=== PATIENT | female | born 1985 | race Caucasian/White ===

== ENCOUNTER 2016-08-18 17:52 | Emergency (ER) | payer SELFPAY ==
[~2016-08-18] VITALS: Ht 170.2 cm; Wt 70.7 kg
[2016-08-18 20:14] LABS: EOSINOPHIL (%) 2.1 % (0-5); EOSINOPHIL COUNT 0.2 K/uL (0-0.3); HEMATOCRIT 36.4 % (36.0-46.0); IMMATURE GRANULOCYTE (%) 0.3 % (0.0-0.7); IMMATURE GRANULOCYTE COUNT 0.3 K/uL; LYMPHOCYTE COUNT 1.7 K/uL (1.0-2.8); MCH 29.7 PG (29.0-34.0); MCHC 34.9 G/DL (30.0-36.0); MEAN PLAT.VOLUME 10.2 uM^3 (9.5-12.4); MONOCYTE (%) 5.7 % (3-12); MONOCYTE COUNT 0.5 K/uL (0-0.8); NEUTROPHIL (%) 72.8 % (45-76); NEUTROPHIL COUNT 6.6 K/uL (1.8-6.4); PLATELET COUNT 342 K/uL (156-360); RBC DIS.WIDTH-CV 11.9 % (11.8-14.6); RBC DIS.WIDTH-SD 35.8 % (39-53); RED BLOOD COUNT 4.28 M/uL (3.80-5.20); WHITE BLOOD COUNT 9.1 K/uL (4.1-10.2)
[2016-08-18 20:23] LABS: CHLORIDE 106 mEq/L (99-109); POTASSIUM 3.6 mEq/L (3.7-5.4); SODIUM 141 mEq/L (136-147)
[2016-08-18 20:24] LABS: GLUCOSE 92 mg/dL (70-99)
[2016-08-18 20:26] LABS: ANION GAP 9 MEQ/L (2-14)
[2016-08-18 20:28] LABS: GFR ESTIMATE (CALCULATED) > 59 mL/min/
[2016-08-18 20:29] LABS: UREA NITROGEN (BUN) 5 mg/dL (9-23)
[2016-08-18 20:34] LABS: TROP-I INTERPRETATION NEGATIVE; TROPONIN-I < 0.01 ng/mL (0.0-0.30)
[2016-08-18 20:36] LABS: QUANTITATIVE HCG < 4.0 MIU/ML
[2016-08-18 22:18] VITALS: BP 114/72
== END 2016-08-18 22:21 | disposition home or self-care (01) ==
LOC: EME 17:52
PROVIDERS: Emergency Medicine
DX: R55 Syncope and collapse (principal); S80.01XA Contusion of right knee, initial encounter; S09.90XA Unspecified injury of head, initial encounter; W18.39XA Other fall on same level, initial encounter; Y92.002 Bathroom of unspecified non-institutional (private) residence as the place of occurrence of the external cause
CPT/HCPCS: 70450; 73564; 80048; 84484; 84702; 85025; 93005; 99281; 99285

== ENCOUNTER 2016-11-11 18:30 | Emergency (ER) | payer SELFPAY ==
[~2016-11-11] VITALS: Ht 170.2 cm; Wt 75.3 kg
[2016-11-11 21:25] VITALS: BP 127/93
== END 2016-11-11 21:25 | disposition home or self-care (01) ==
LOC: EXP 18:30 → EME 18:30 → EXP 21:25
DX: S80.12XA Contusion of left lower leg, initial encounter (principal); S93.602A Unspecified sprain of left foot, initial encounter; W18.09XA Striking against other object with subsequent fall, initial encounter
CPT/HCPCS: 73590; 73630; 99281; 99284

== ENCOUNTER 2017-03-11 19:39 | Emergency (ER) | payer SELFPAY ==
[~2017-03-11] VITALS: Ht 170.2 cm; Wt 74.8 kg
[2017-03-11] MEDS ORDERED: ZYRTEC10 M3 PO (21:56)
[2017-03-11] MEDS ORDERED: FLONASE16 G1 BOTH NARES (21:56)
[2017-03-11] MEDS ORDERED: NAPROSYN500 MG PO (21:56)
[2017-03-11] MEDS ORDERED: GUAIFENESIN600 M1 PO (21:56)
[2017-03-11 22:16] VITALS: BP 141/99
== END 2017-03-11 22:17 | disposition home or self-care (01) ==
LOC: EME 19:39
DX: J06.9 Acute upper respiratory infection, unspecified (principal); J30.2 Other seasonal allergic rhinitis; Z77.22 Contact with and (suspected) exposure to environmental tobacco smoke (acute) (chronic); R51 Headache
CPT/HCPCS: 93005; 99281; 99284; J1885

== ENCOUNTER 2017-11-14 15:33 | Emergency (ER) | payer SELFPAY ==
[~2017-11-14] VITALS: Ht 165.1 cm; Wt 77.6 kg
[~2017-11-14 15:33] MED LIST: FLONASE16 G1 BOTH NARES; GUAIFENESIN600 M1 PO; NAPROSYN500 MG PO; ZYRTEC10 M3 PO
[2017-11-14] MEDS ORDERED: MOTRIN600 MG PO (17:09)
[2017-11-14 17:32] VITALS: BP 120/78
== END 2017-11-14 17:34 | disposition home or self-care (01) ==
LOC: RME 15:33 → EME 15:33 → RME 17:34
DX: S63.601A Unspecified sprain of right thumb, initial encounter (principal); W10.9XXA Fall (on) (from) unspecified stairs and steps, initial encounter
CPT/HCPCS: 73140; 99281; 99284